=== PATIENT | male | born 1975 | race Caucasian/White ===

== ENCOUNTER 2018-07-02 08:09 | Day surgery (SDC) | payer OTHER ==
[2018-07-02 08:39] VITALS: BMI 24.8
[2018-07-02 09:34] VITALS: TEMP 98
[2018-07-02 11:23] VITALS: PULSE 82
[2018-07-02 11:31] VITALS: BP 112/69
--- NOTE | 2018-07-06 13:57 | PATH ---
Surgical Pathology Report Patient Name: NICOLE PERRY [facility]. Rec. #: [id number] /Age/Gender: 1975 (Age: 43) / M Account: [id number] Location: [facility] Taken: 07/02/2018 Received: 07/02/2018 Reported: 07/06/2018 Physicians: Toirbio Guaman M.D. Specimen(s) Received POLYP SIGMOID COLON Clinical History Family history of colon cancer Postoperative diagnosis: Polyp Final Diagnosis SIGMOID COLON POLYP, BIOPSY: COLONIC MUCOSA WITH FOCAL SURFACE HYPERPLASTIC CHANGE. Electronically Signed Enrike Egan M.D. Gross Description Received in formalin, labeled "biopsy polyp sigmoid colon" is a whiteside, irregular portion of soft tissue measuring 0.5 cm. in greatest dimension. The specimen is submitted in toto in one cassette. 07/03/201807/03/2018
== END 2018-07-02 09:50 | disposition home or self-care (01) ==
LOC: FASU-ENDO 08:09
PROVIDERS: ATTEND Internal Medicine Gastroenterology
PROC: 0DBN8ZX Excision of Sigmoid Colon, Via Natural or Artificial Opening Endoscopic, Diagnostic (ICD-10-PCS; principal; 2018-07-02 08:53)
DX: Z12.11 Encounter for screening for malignant neoplasm of colon (principal); Z80.0 Family history of malignant neoplasm of digestive organs; Z83.71 Family history of colonic polyps; D12.5 Benign neoplasm of sigmoid colon; K64.8 Other hemorrhoids
CPT/HCPCS: 88305-TC

== ENCOUNTER 2023-07-17 08:22 | Day surgery (SDC) | payer OTHER ==
[2023-07-10 14:02] VITALS: BMI 24.2
[2023-07-17 10:04] VITALS: TEMP 97
[2023-07-17 10:24] VITALS: RESP 18
[2023-07-17 10:28] VITALS: BP 114/71; PULSE 76
== END 2023-07-17 11:02 | disposition home or self-care (01) ==
LOC: FASU-ENDO 08:22
PROVIDERS: ATTEND Internal Medicine Gastroenterology
PROC: 0DJD8ZZ Inspection of Lower Intestinal Tract, Via Natural or Artificial Opening Endoscopic (ICD-10-PCS; principal; 2023-07-17 09:47)
DX: Z12.11 Encounter for screening for malignant neoplasm of colon (principal); Z80.0 Family history of malignant neoplasm of digestive organs; K64.4 Residual hemorrhoidal skin tags